=== PATIENT | male | born 1990 | race Caucasian/White ===

== ENCOUNTER 2018-12-05 09:59 | Emergency (ER) | payer SELFPAY ==
[~2018-12-05] VITALS: Wt 74.0 kg
[2018-12-05 10:01] VITALS: BP 136/85; PULSE 71; RESP 18
--- NOTE | 2018-12-05 10:51 | ERD ---
ER Documentation Chief Complaint Chief Complaint COUGH X COUPLE MOS, CHEST DISCONFORT AFTER COUGHING HPI 28-year-old male, previously healthy, presents to the emergency department, complaining of 2 months with persistent dry cough, worse at night, associated with chest wall pain. No fever, no chills, no shortness of breath. No medications taken at this time. The patient is requesting chest x-rays. ROS All systems reviewed and are negative except as per history of present illness. Medications Home Meds Active Scripts Prednisone* (Prednisone*) 20 Mg Tab, 40 MG PO DAILY for 5 Days, TAB Prov:TANIYA DODD MD 12/05/18 Ranitidine Hcl* (Zantac*) 150 Mg Tablet, 150 MG PO BID PRN for EPIGASTRIC PAIN, #12 TAB Prov:TANIYA DODD MD 12/05/18 Allergies Allergies: Coded Allergies: sulfamethoxazole (Verified Allergy, Severe, tongue swells, 12/05/18) trimethoprim (Verified Allergy, Severe, tongue swells, 12/05/18) Physical Exam Vitals Vital Signs Date Temp Pulse Resp B/P (MAP) Pulse Ox O2 O2 Flow FiO2 Time Delivery Rate 12/05/18 98.2 71 18 136/85 99 10:01 (102) Physical Exam Const: No acute distress Head: Atraumatic Eyes: Normal Conjunctiva ENT: Normal External Ears, Nose and Mouth. Neck: Full range of motion. No meningismus. Resp: Clear to auscultation bilaterally Cardio: Regular rate and rhythm, no murmurs Abd: Soft, non tender, non distended. Normal bowel sounds Skin: No petechiae or rashes Back: No midline or flank tenderness Ext: No cyanosis, or edema Neur: Awake and alert Psych: Normal Mood and Affect Results 24 hrs DIAGNOSTIC IMAGING REPORT Patient: DELMI SLOAN JR : 1990 Age: 28 Sex: M [id number] [id number] DOS: 12/05/18 1121 Ordering MD: TANIYA DODD MD Location: [facility] Room/Bed: PROCEDURE: XR Chest. CLINICAL INDICATION: Cough TECHNIQUE: PA and Lateral views of the chest were obtained. COMPARISON: None. FINDINGS: Cardiomediastinal silhouette is normal. Pulmonary vasculature is normal. Lungs and costophrenic angles are clear. Bones and soft tissues are unremarkable. IMPRESSION: No evidence of acute cardiopulmonary disease. RPTAT:AAJJ Physician Rodney Date Time Electronically viewed and signed by Physician Rodney on 12/05/2018 11:41 BM/ CC: TANIYA DODD MD [id number] EKG read by me: Rate/Rhythm: Regular rate and rhythm at a rate of 71 Intervals: Normal Nonspecific ST and T wave abnormality. Impression: No evidence of acute ischemia or arrhythmia Procedures/MDM Differential diagnosis include but not limited to: Respiratory infection bacterial/viral/fungal. Asthma, COPD, pneumonitis, allergies, GERD. Less cardiac related, aspiration pneumonia, malignancy. Physical examination and clinical presentation consistent most likely with allergic cough. During the ED course the patient remained stable, no new complaints. Treatment options and clinical impression discussed with patient who agrees with management. The patient is stable to be treated outpatient and will be discharged home. Some side effects of prescribed medications (headache, rash, nausea, vomiting, diarrhea, interactions with other medications) were reviewed. The patient needs to follow up with the primary care provider in the next 48h. If symptoms persist, worsen or new symptoms develop, then patient should return to the ED immediately. Disclaimer: Inadvertent spelling and grammatical errors are likely due to EHR/dictation software use and do not reflect on the overall quality of patient care. Also, please note that the electronic time recorded on this note does not necessarily reflect the actual time of the patient encounter. Departure Diagnosis: Primary Impression: Allergic cough Condition: Stable Additional Instructions: Thank you very much for allowing us to participate in your care. Your health and safety is our top priority at [facility]. Call your primary care doctor TOMORROW for an appointment during the next 2-4 days and bring all the information and medications prescribed. Have prescriptions filled and follow precisely the directions on the label. If the symptoms get worse and your provider is unavailable, return to the Emergency Department immediately. TANIYA DODD MD Dec 05, 2018 10:51
[2018-12-05] MEDS ORDERED: RANI150T35 PO (11:53)
[2018-12-05] MEDS ORDERED: PRED20TA PO (11:53)
== END 2018-12-05 12:01 | disposition home or self-care (01) ==
LOC: FTE 09:59
DX: R05 Cough (principal); R07.9 Chest pain, unspecified
CPT/HCPCS: 71046; 93005